=== PATIENT | female | born 1975 | race Caucasian/White ===

== ENCOUNTER 2020-04-11 22:06 | Emergency (ER) | payer MEDICAID, SELFPAY ==
[2020-04-11 22:08] VITALS: BP 107/74; PULSE 71; RESP 18; TEMP 36.6; O2SAT 100; BMI 26.9
--- NOTE | 2020-04-11 22:35 | ED.DCSUM_ITS ---
- ER Visit Summary Date of Service: 04/11/20 Chief Complaint: Right great toe discomfort History of Present Illness: The patient is a [address] of asthma. Patient states today her son was contemplating with her shoe and she felt some discomfort in her right great toe. Denies any trauma whatsoever. No history of gout. No falls or injury. No prior history or surgery to the right foot. Physical Examination: Well-appearing middle-aged female no acute distress. Vital signs are stable and afebrile. H EENT exam unremarkable. Lungs clear to auscultation. Heart regular rhythm no murmur. Abdomen soft nontender. Patient is moving all 4 extremities. Neurovascularly intact. The right calf and ankle are nontender nonswollen. She has normal DP pulse. She has normal range of motion of all digits of the right foot. All of her toes appear normal except for the right great toe there is some irregularity of the nail on the lateral side consistent with either trauma to the nail that was old or fungal infection. She also some redness around the paronychial skin the proximal end of the right great toe nail consistent with a soft tissue infection. There is no pus there is nothing that needs I&D. There is no bony deformity or tenderness. Clinically this does not appear to be gout. Test Results: Rao with patient. X-rays not indicated at this time. She is comfortable with no testing being performed. Emergency Department Course and Treatment: This to be treated as a soft tissue infection. Started on Keflex. He and I discussed the possibility of developing a fungal nail infection. Treatment Plan: Keflex 4 times daily for 7 days. Tylenol and Motrin for pain. Follow-up with Dr. Mejia of podiatry. Disposition: Discharge Impression: Acute right great toe soft tissue infection Right great toe nail fungal infection This note was generated with [employer] dictation software. It may contain incorrect words, spelling, and punctuation that were not noted in review of the chart prior to signing ED Disposition - Plan for ED Patient: Referrals: Care Physician,No Primary [Primary Care Provider] -
--- NOTE | 2020-04-11 22:38 | ED.DEP ---
ED Disposition - Plan for ED Patient: Disposition: Home or Assisted Living Instructions: ED Cellulitis Prescriptions: Cephalexin [Keflex] 500 mg PO Q6 #30 cap Prescription Printed Referrals: Rose Mejia DPM [STAFF PHYSICIAN] - 1 Week Additional Instructions: We will treat this is an early soft tissue infection of your right great toe. The irregularity of your right great toenail may be signs of an early nail fungal infection also. Keflex 1 pill 4 times a day till gone. Tylenol and/or Motrin for pain. Follow-up with the whipped topping supervisor.
[2020-04-11] MEDS: Cephalexin 250 MG Capsule 500 MG PO (22:49)
== END 2020-04-11 22:50 | disposition home or self-care (01) ==
PROVIDERS: Emergency Provider Emergency Medicine
DX: L08.9 Local infection of the skin and subcutaneous tissue, unspecified (principal); B35.1 Tinea unguium; J45.909 Unspecified asthma, uncomplicated
CPT/HCPCS: 99283

== ENCOUNTER → 2021-03-22 09:28 | Outpatient (CLI) | payer MEDICAID, SELFPAY ==
--- NOTE | 2021-03-22 14:34 | PFTCOMP_ITS ---
COMPLETE PULMONARY FUNCTION TEST INTERPRETATION Brief HPI: Patient is a 45 year old female, currently under the care of Dr. Benoit, who presents to [facility] for complete pulmonary function tests secondary to diagnosis of asthma. Respiratory therapist reports good effort and reproducible results. Interpretation: Forced expiration spirometry shows a mild large airways obstructive ventilatory defect with an FEV1 of 110% predicted. There is a significant bronchodilator response in FEV1 by strict ATS criteria. Spirograms are of good quality and plateau normally. The respiratory flow volume loop shows a normal pattern. Lung volumes by body plethysmography show an elevated total lung capacity at 6.67 L, 128% predicted. All other lung volumes are increased symmetrically. Diffusion capacity by carbon monoxide is normal at 92% predicted. The airway resistance is slightly elevated. No previous pulmonary function tests were available for review. Impression: Partially reversible mild large airways obstructive ventilatory defect resulting in hyperinflation
== END ==
PROVIDERS: PCP Family Medicine; Referring Provider Family Medicine; Visit Provider Family Medicine
DX: J45.909 Unspecified asthma, uncomplicated (principal)
CPT/HCPCS: 94060; 94726; 94729

== ENCOUNTER → 2021-04-07 07:41 | Outpatient (CLI) | payer MEDICAID, SELFPAY ==
[2021-04-07 10:19] LABS: ALB/GLOB Ratio 1.2 RATIO (0.9-2.4); AST(SGOT) 15 U/L (15-37); Alanine Aminotransfer ALT/SGPT 22 U/L (13-56); Albumin, Serum 3.7 g/dL (3.2-5.0); Alkaline Phosphatase 82 U/L (45-117); Anion Gap 5 (5-15); BUN 22 mg/dL (7-18); BUN/Creat Ratio 23.8 RATIO (10-20); Calcium,Total 8.5 mg/dL (8.5-10.1); Chloride 109 mmol/L (98-107); Cholesterol 160 mg/dL (200); Creatinine, Serum 0.93 mg/dL (0.55-1.02); EST Glomerular Filtration Rate 70 mL/min (>60); Est Glom Filt Rate - Afr Amer 85 mL/min (>60); Globulin 3.1 g/dL (2.2-4.2); Glucose 83 mg/dL (74-106); High Density Lipoprotein 71 mg/dL; Potassium 4.2 mmol/L (3.5-5.1); Protein, Total 6.8 g/dL (6.4-8.2); Sodium Level 142 mmol/L (136-145); Triglycerides 56 mg/dL; Very Low Density Lipoprotein 11 mg/dL (5-40)
== END ==
PROVIDERS: PCP Family Medicine; Referring Provider Family Medicine; Visit Provider Family Medicine
DX: E66.3 Overweight (principal)
CPT/HCPCS: 36415; 80053; 80061

== ENCOUNTER 2021-04-20 22:42 | Emergency (ER) | payer MEDICAID, SELFPAY ==
[2021-04-20 22:44] VITALS: BP 91/63; PULSE 83; RESP 16; TEMP 36.4; O2SAT 97; BMI 26.8
--- NOTE | 2021-04-20 23:03 | EX.ED.VIS.UR ---
HPI HPI - URI History of Present Illness Chief Complaint: Cold Sx Narrative Narrative: Patient presenting for evaluation secondary to upper respiratory symptoms. Patient states that over the course about the last 3 to 4 days she has had a cough productive of green sputum, green discharge from her nares nasal congestion and a mild sore throat. She denies any fevers. Patient does have an underlying history of asthma states that she has been wheezing and had to have increased usage of her inhaler. Patient denies any sick contacts. She does report some chest tightness associated with this. No vomiting or diarrhea. Review of systems otherwise negative. ROS ROS ED Constitutional Constitutional ED: Denies chills or fever(s) ENT ENT ED: Reports rhinorrhea and sore throat Cardiovascular Cardiovascular: Denies chest pain Respiratory/Chest Respiratory/Chest: Reports cough and dyspnea Gastrointestinal Gastrointestinal: Denies abdominal pain, diarrhea, nausea or vomiting Genitourinary Genitourinary ED: Denies dysuria or hematuria Musculoskeletal Musculoskeletal: Denies back pain Integumentary Denies rash Neurologic Neurologic: Denies paresthesias or weakness Psychiatric Psychiatric: Denies depression Endocrine Endocrinology: Denies fatigue Allergic/Immunologic Allergic/Immunologic ED: Denies urticaria PFSH PFSH Home Medications albuterol sulfate 1 puff INHALATION Q4H PRN PRN 04/11/20 [History Last Taken Unknown] cephalexin 500 mg PO Q6 #30 cap 04/11/20 [Rx Last Taken Unknown] fluticasone propionate [Flonase Allergy Relief] 1 spray INTRANASAL BID #16 g 04/20/21 [Rx Last Taken Unknown] prednisone 40 mg PO DAILY #8 tab 04/20/21 [Rx Last Taken Unknown] Allergy/AdvReac Type Severity Reaction Status Date / Time No Known Allergies Allergy Verified 04/20/21 22:43 Social History Smoking Status: Former smoker EXAM Physical Exam Const Vital Signs: 04/20/21 22:44 Temperature 97.5 F L Temperature Source Temporal Pulse Rate 83 Respiratory Rate 16 Blood Pressure 91/63 Blood Pressure Mean 72 Pulse Ox 97 Oxygen Delivery Method Room Air Positive well nourished and well developed General Appearance ED: well developed and NAD HEENT Reports moist mucous membranes HEENT Narrative: No pharyngeal erythema. There is nasal congestion and swollen turbinates. Minimal diffuse sinus tenderness to percussion is noted. Negative for trauma or tenderness Eyes EOMs intact bilaterally Neck no lymphadenopathy, supple and no JVD Chest Wall inspection of chest normal Resp normal respiratory effort Auscultation: wheezes Cardio regular rate, regular rhythm, no murmurs and peripheral pulses 2+ throughout GI normal to inspection, nondistended, normoactive bowel sounds, non-tender and no masses Palpation: soft Back/Spine normal to inspection Extremity normal to inspection General Extremety ED: Negative for tenderness Neuro oriented x3 and no sensory deficits noted Sensorium / Orientation: alert Motor Exam: strength 5/5 throughout Psych mental status grossly normal Skin no rashes or lesions noted MDM MDM MDM Narrative Medical decision making narrative: Patient is presenting with an upper respiratory infection. She does have an element of an asthma exacerbation as she is wheezing. She has not had symptoms long enough to warrant antibiotic treatment for sinusitis. She was recommended to use Flonase as well as alternating Afrin and [id number] remedies. Patient will be placed on a short burst of prednisone for asthma exacerbation which also will help with her rhinosinusitis. Patient was discharged in stable condition. Discharge Plan Triage Chief Complaint: Cold Sx ED Provider: Jack Mancilla Dx/Rx/DC Orders Clinical Impression: Acute rhinosinusitis, Asthma exacerbation Instructions: ED Asthma, Acute (Adult), ED URI, Viral W/ Wheezing (Adult) Prescriptions: New prednisone 20 mg tablet 40 mg PO DAILY Qty: 8 RF: 0 fluticasone propionate [Flonase Allergy Relief] 50 mcg/actuation spray,suspension 1 spray intranasal BID Qty: 16 RF: 0 No Action albuterol sulfate 1 INHALER inhaler 1 puff inhalation Q4H PRN PRN (Reason: Sob &/Or Wheezing) RF: 0 cephalexin 500 MG capsule 500 mg PO Q6 Qty: 30 RF: 0 Primary Care Provider: Abdulkadir Benoit Referrals: Abdulkadir Benoit MD [Primary Care Provider] - As Needed Disposition Disposition: Home, Self Care
[2021-04-20 23:12] VITALS: BP 91/63; PULSE 83; RESP 16; TEMP 36.4; O2SAT 97
[2021-04-20] MEDS: predniSONE 20 MG Tablet 40 MG PO (23:12)
== END 2021-04-20 23:14 | disposition home or self-care (01) ==
LOC: ED 23:06
PROVIDERS: Emergency Provider Emergency Medicine; PCP Family Medicine
DX: J01.90 Acute sinusitis, unspecified (principal); J45.901 Unspecified asthma with (acute) exacerbation; Z87.891 Personal history of nicotine dependence
CPT/HCPCS: 99283